=== PATIENT | female | born 1995 | race Two or more races ===

== ENCOUNTER 2017-04-05 05:05 | Emergency (ER) | payer OTHER ==
[~2017-04-05] VITALS: Ht 160 cm; Wt 77.7 kg
[2017-04-05 05:08] VITALS: BP 120/85
[2017-04-05] MEDS ORDERED: DEXAMETHASONE 4 MG/ML, 1ML PO ONE (06:00)
[2017-04-05] MEDS ORDERED: DEXAMETHASONE 4 MG/ML, 5ML ONE (06:00)
== END 2017-04-05 06:34 | disposition home or self-care (01) ==
LOC: ED 05:49
DX: J02.8 Acute pharyngitis due to other specified organisms (principal)
CPT/HCPCS: 99283; J1100